=== PATIENT | male | born 1990 | race Caucasian/White ===

== ENCOUNTER 2019-09-09 14:53 | Inpatient (IN) | payer MEDICAID, OTHER ==
[~2019-09-09] VITALS: Ht 175.3 cm; Wt 87.4 kg
[2019-09-09 15:54] LABS: INFLUENZA A AMPLIFICATION NEGATIVE (NEGATIVE); INFLUENZA B AMPLIFICATION NEGATIVE (NEGATIVE)
[2019-09-09] MEDS ORDERED: NS 1,000 ML IV ONE (16:45)
[2019-09-09 17:26] LABS: BASO # 0.1 10^3/uL (0.0-0.2); BASO % 0.6 % (0.0-1.0); EOS % 0.1 % (0.0-3.0); HEMATOCRIT 43.8 % (42.0-52.0); HEMOGLOBIN 15.3 g/dl (13.5-17.5); LYMPH # 1.1 10^3/uL (1.5-5.0); LYMPH % 7.5 % (24.0-44.0); MEAN CORPUSCULAR HEMOGLOBIN 30.5 pg (27.0-33.0); MEAN CORPUSCULAR HGB CONC 34.9 g/dl (32.0-36.5); MEAN CORPUSCULAR VOLUME 87.4 fl (80.0-96.0); MONO # 1.4 10^3/uL (0.0-0.8); MONO % 9.4 % (0.0-5.0); NEUTROPHILS # 12.3 10^3/uL (1.5-8.5); NEUTROPHILS % 82.1 % (36.0-66.0); PLATELET COUNT, AUTOMATED 233 10^3/uL (150-450); RED BLOOD COUNT 5.01 10^6/uL (4.30-6.10)
[2019-09-09 17:44] LABS: ALBUMIN 4.3 GM/DL (3.2-5.2); ALT/SGPT 25 U/L (12-78); BILIRUBIN,DIRECT 0.3 MG/DL (0.0-0.2); BILIRUBIN,TOTAL 0.8 MG/DL (0.2-1.0); BLOOD UREA NITROGEN 10 MG/DL (7-18); CALCIUM LEVEL 9.2 MG/DL (8.5-10.1); CARBON DIOXIDE LEVEL 27 MEQ/L (21-32); CHLORIDE LEVEL 104 MEQ/L (98-107); CREATININE FOR GFR 1.06 MG/DL (0.70-1.30); GLOMERULAR FILTRATION RATE > 60.0 (>60); GLUCOSE, FASTING 89 MG/DL (70-100); LIPASE 60 U/L (73-393); POTASSIUM SERUM 3.5 MEQ/L (3.5-5.1); SODIUM LEVEL 138 MEQ/L (136-145); TOTAL PROTEIN 7.7 GM/DL (6.4-8.2)
--- NOTE | 2019-09-09 18:05 | REP ---
THORACIC SPINE: AP and lateral views of the thoracic spine were performed. No compression fracture is seen. There is normal thoracic kyphosis in alignment. Disc spaces are well preserved. Posterior elements are intact. There is very mild curvature of the upper thoracic spine toward the right and lower thoracic spine toward the left. IMPRESSION: No acute fracture or dislocation. Mild curvature. Electronically Signed by Jordin Del Rosario MD 09/09/2019 06:13 P
--- NOTE | 2019-09-09 18:06 | REP ---
CHEST: Two views. There is no evidence of acute infiltrate. No pleural effusion is seen. The heart is normal in size. The mediastinal silhouette is unremarkable. The visualized osseous structures are intact. IMPRESSION: No acute pulmonary disease. Electronically Signed by Jordin Del Rosario MD 09/09/2019 06:13 P
--- NOTE | 2019-09-09 18:20 | ECGEPIP ---
[facility], [place] - ED Test Date: 2019-09-09 Pat Name: LILIANE LOYD Department: Room: - Gender: Male [employer] Officer: MICHAELA : 1990 Requested By: STACY Marin PA-C Order Number: [id number] Reading MD: Ge Avendano Measurements Intervals [place] Rate: 103 P: 21 OH: 154 QRS: -16 QRSD: 100 T: 21 QT: 321 QTc: 421 Interpretive Statements SINUS TACHYCARDIA NONSPECIFIC T WAVE ABNORMALITIES NO PRIORS FOR COMPARISON Electronically Signed on 09-09-2019 18:20:18 EST by Ge Avendano
[2019-09-09] MEDS ORDERED: cefTRIAXone SOD 2 GM in D5W MINI-BAG PLUS 50 ML IV ONE (18:45)
[2019-09-09] MEDS ORDERED: NS 1,690 ML in IV 1 EA IV ONE (18:45)
[2019-09-09] MEDS ORDERED: IBUPROFEN 800 MG TAB PO ONE (19:00)
[2019-09-09] MEDS ORDERED: ACETAMINOPHEN 325 MG TAB PO ONE (19:00)
--- NOTE | 2019-09-09 19:19 | HPEPDOC ---
[facility] Medical History & Physical Date of Admission Sep 09, 2019 Date of Service: Sep 09, 2019 Attending Physician: RENETTA CASTELLANOS MD History and Physical TIME OF SERVICE: 8:30 PM CHIEF COMPLAINT: Cough HISTORY OF PRESENT ILLNESS: This is a 29-year-old male who presents with complaints of cough, runny nose and congestion for 2 weeks. Last night he developed a fever, chills, and myalgias therefore he decided to come in to the ER for evaluation. 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 He denies having any abnormal discharge. REVIEW OF SYSTEMS: 12 point review of systems negative except as listed in HPI PAST MEDICAL/ SURGICAL HISTORY: History of nephrolithiasis. Status post appendectomy. SOCIAL HISTORY: He chews tobacco. FAMILY HISTORY: His aunt has kidney problems and is on dialysis. His grandpa has diabetes. ALLERGIES: Please see below. HOME MEDICATIONS: Please see below. PHYSICAL EXAMINATION: VITAL SIGNS: Please see below. GENERAL APPEARANCE: Well-nourished, well-developed, appears acutely ill HEENT: Normocephalic, atraumatic, mucous membranes moist and pink, sclerae anicteric CARDIOVASCULAR: Tachycardic, no murmurs, rubs or gallops, radial pulses are intact, external these are warm and well-perfused LUNGS: Clear to auscultation bilaterally on room air ABDOMEN:. Positive bowel sounds. Abdomen is soft; he grimaces with palpation of the lower abdomen MUSCULOSKELETAL: He does not have CVA tenderness, there is some tenderness with palpation of the mid upper back INTEGUMENT: He appears slightly pale and is diaphoretic NEUROLOGICAL: Cranial nerves II-12 are grossly intact. Speech is not dysarthric PSYCHIATRIC: Alert and oriented to person, place and time, able to understand and follow all commands LABORATORY DATA: See below. IMAGING: Thoracic spine x-ray "IMPRESSION: No acute fracture or dislocation. Mild curvature." Chest x-ray "IMPRESSION: No acute pulmonary disease." MICROBIOLOGY: Please see below. ASSESSMENT: Mr. Maguire is a 23 year old with a past medical history of uncontrolled hypertension and tobacco abuse who will be admitted for management of sepsis secondary to UTI. PLAN: 1. Sepsis Despite complaining of URI symptoms, based on the complaint of abdominal pain and UA, he has been diagnosed with a UTI ; we can't rule out a viral URI because the panel is still pending. SIRS criteria include Temp >101 / HR >90 / WBC >12 His lactic acid is 1 NEW2S Score = 3 = low risk Sepsis protocol was initiated in the ER; he received IV fluids and ceftriaxone Plan: admit medical floor/ telemetry / continue ceftriaxone / will not give additional IV fluids because his blood pressures on the high side /f/u blood cx, UCx and respiratory panel / Acetaminophen PRN for fever / target MAP 65 to 70 / f/u Is and Os with target UOP of atleast 0.5 ml/kg/H /follow-up, Accu-Cheks with a target serum glucose 140-180 while acutely ill 2. Uncontrolled hypertension. He is aware that he has hypertension but has not been started on medications. He is a bit young to have high blood pressure may be due to his tobacco use Plan: start low-dose amlodipine and have a low threshold to discontinue this medication if his blood pressure drops because of infection/ he can follow-up with his PCP for workup to rule out secondary causes of hypertension / will order a low-salt diet and avoid being additional doses of NSAIDs 3. Tobacco abuse Plan Tobacco cessation education DVT prophylaxis with SCDs Disposition likely home after more than 2 midnight's stay Vital Signs Vital Signs Date Time Temp Pulse Resp B/P (MAP) Pulse Ox O2 Delivery O2 Flow Rate FiO2 09/09/19 18:30 102.3 105 18 180/98 (125) 100 Room Air Laboratory Data Labs 24H Laboratory Tests 2 09/09/19 15:15: Influenza Type A (RT-PCR) NEGATIVE, Influenza Type B (RT-PCR) NEGATIVE 09/09/19 17:05: 09/09/19 17:06: Immature Granulocyte % (Auto) 0.3, Neutrophils (%) (Auto) 82.1H, Lymphocytes (%) (Auto) 7.5L, Monocytes (%) (Auto) 9.4H, Eosinophils (%) (Auto) 0.1, Basophils (%) (Auto) 0.6, Neutrophils # (Auto) 12.3H, Lymphocytes # (Auto) 1.1L, Monocytes # (Auto) 1.4H, Eosinophils # (Auto) 0.0, Basophils # (Auto) 0.1, Nucleated Red Blood Cells % (auto) 0.0, D-Dimer, Quantitative 402.31, Urine Color YELLOW, Urine Appearance CLEAR, Urine pH 6.0, Urine Specific Pegram 1.018, Urine Protein 1+H, Urine Glucose (UA) NEGATIVE, Urine Ketones 1+H, Urine Blood 2+H, Urine Nitrite NEGATIVE, Urine Bilirubin NEGATIVE, Urine Urobilinogen 2.0H, Urine Leukocyte Esterase 2+H, Urine WBC (Auto) 78H, Urine RBC (Auto) 16H, Urine Hyaline Casts (Auto) 0, Urine Bacteria (Auto) 1+H, Urine Squamous Epithelial Cells 0, Urine Mucus (Auto) SMALL, Urine Sperm (Auto) , Anion Gap 7L, Glomerular Filtration Rate > 60.0, Calcium Level 9.2, Total Bilirubin 0.8, Direct Bilirubin 0.3H, Aspartate Amino Transf (AST/SGOT) 15, Alanine Aminotransferase (ALT/SGPT) 25, Alkaline Phosphatase 99, Total Protein 7.7, Albumin 4.3, Albumin/Globulin Ratio 1.26, Lipase 60L CBC/BMP Laboratory Tests 09/09/19 17:06 Microbiology Microbiology 09/09/19 Urine Culture, Received Pending Home Medications Scheduled Amoxicillin/Potassium Clav (Augmentin 875-125 Tablet) 1 Each Tablet, 875 MG PO BID Azithromycin (Azithromycin) 500 Mg Tablet, 1 TAB PO DAILY Lisinopril (Lisinopril) 10 Mg Tablet, 10 MG PO DAILY Oseltamivir Phosphate (Oseltamivir Phosphate) 75 Mg Capsule, 75 MG PO BID Allergies Coded Allergies: No Known Allergies (Unverified , 09/09/19) A-FIB/CHADSVASC A-FIB History Current/History of A-Fib/PAF?: No Current PO Anticoag Therapy: No RENETTA CASTELLANOS MD Sep 09, 2019 19:19
[2019-09-09] MEDS ORDERED: NS 1,000 ML IV SCH (19:45)
[2019-09-09 20:18] LABS: CHLAMYDIA DNA AMPLIFICATION NEGATIVE (NEGATIVE); GC DNA AMPLIFICATION NEGATIVE (NEGATIVE)
[2019-09-09 20:51] VITALS: BP 160/84
[2019-09-09] MEDS ORDERED: lisinopriL 10 MG TAB PO SCH (21:15)
[2019-09-09 22:00] VITALS: BP 157/84
[2019-09-09 22:06] VITALS: BP_SYST 135; BP_SYST 136; BP_DIAS 80
[2019-09-09 22:58] LABS: VENOUS BASE EXCESS -2.8 (-2.0-2.0); VENOUS HCO3 21.3 MEQ/L (23.0-27.0); VENOUS O2 SATURATION 99.1 % (60.0-80.0); VENOUS PARTIAL PRESSURE CO2 35.2 mmHg (38.0-50.0); VENOUS PARTIAL PRESSURE O2 171.1 mmHg (30.0-50.0); VENOUS STANDARD HCO3 22.2 MEQ/L; VENOUS TOTAL CO2 22.4 MEQ/L (24.0-28.0)
[2019-09-10 02:00] VITALS: BP 131/90
[2019-09-10] MEDS: ACETAMINOPHEN TAB 650MG DOSE (2X325MG) PO PRN ×2 (05:13→18:29)
[2019-09-10 05:45] VITALS: BP 142/95
[2019-09-10] MEDS ORDERED: IBUPROFEN 400 MG TAB PO SCH (06:00)
[2019-09-10 06:24] LABS: HEMATOCRIT 40.7 % (42.0-52.0); HEMOGLOBIN 13.7 g/dl (13.5-17.5); MEAN CORPUSCULAR HGB CONC 33.7 g/dl (32.0-36.5); MEAN CORPUSCULAR VOLUME 89.1 fl (80.0-96.0); PLATELET COUNT, AUTOMATED 192 10^3/uL (150-450); RED BLOOD COUNT 4.57 10^6/uL (4.30-6.10); WHITE BLOOD COUNT 11.8 10^3/uL (4.0-10.0)
[2019-09-10 06:42] LABS: BLOOD UREA NITROGEN 7 MG/DL (7-18); CALCIUM LEVEL 8.3 MG/DL (8.5-10.1); CARBON DIOXIDE LEVEL 26 MEQ/L (21-32); CHLORIDE LEVEL 109 MEQ/L (98-107); CREATININE FOR GFR 0.79 MG/DL (0.70-1.30); GLOMERULAR FILTRATION RATE > 60.0 (>60); GLUCOSE, FASTING 95 MG/DL (70-100); POTASSIUM SERUM 3.4 MEQ/L (3.5-5.1); SODIUM LEVEL 139 MEQ/L (136-145)
[2019-09-10] MEDS ORDERED: IBUPROFEN 600 MG TAB PO ONE ×2 (07:00→07:30)
[2019-09-10] MEDS ORDERED: POTASSIUM CHLORIDE 10 MEQ SR TABLET PO ONE (07:30)
[2019-09-10] MEDS: cefTRIAXone SOD 2 GM in D5W MINI-BAG PLUS 50 ML IV SCH ×2 (08:27→20:35)
[2019-09-10] MEDS: LIDOCAINE 5% (LIDODERM) PATCH TD SCH (08:28)
[2019-09-10] MEDS ORDERED: INFLUENZA QUADRIVALENT PF VACCINE 0.5ML SYRINGE (90686) IM ONE (09:00)
[2019-09-10 10:00] VITALS: BP 135/75
--- NOTE | 2019-09-10 14:10 | IPNPDOC ---
Text Note Date of Service The patient was seen on 09/10/19. NOTE Subjective: Patient continues to complain of the dry cough with greenish sputum. He is febrile in the morning with temperature 103, he has chills. Patient denies any dysuria Objective: VITAL SIGNS: Please see below. GENERAL APPEARANCE: Well-nourished, well-developed, not in apparent distress HEENT: Normocephalic, atraumatic. Mucous members moist and pink CARDIOVASCULAR: Regular rate and rhythm. No murmurs, rubs or gallops. Radial pulses are intact. There is no lower extremity edema LUNGS: scattered rhonchi bilaterally ABDOMEN: Abdomen is soft and nontender. MUSCULOSKELETAL: Range of motion is intact in all 4 extremities NEUROLOGICAL: Cranial nerves II-12 are grossly intact. Speech is not dysarthric Assessment and plan: Mr. Maguire is a 23 year old with a past medical history of uncontrolled hypertension and tobacco abuse who will be admitted for management of sepsis secondary to upper respiratory infection. 1. Sepsis Patient was febrile and tachycardic on the admission Most likely secondary to upper respiratory infection. Ceftriaxone IV, azithromycin IV I will start Tamiflu because patient has hypertension which put him in the high risk group I will repeat blood culture due to spiking fever in the morning I will repeat UA due to patient's complains of abdominal pain on admission and increased number of leukocytes in the urine. Today patient denied dysuria Acute bronchitis Most likely secondary to viral infection superimposed with bacterial infection Patient has cough with greenish sputum production Has history of smoking Continue antibiotics Incentive spirometry Uncontrolled hypertension. Kidney function improved, I started lisinopril Tobacco abuse Plan Tobacco cessation education [facility] DIAL, I+O VSBurt, I+O Laboratory Tests 09/09/19 17:06 09/10/19 05:36 Vital Signs Date Time Temp Pulse Resp B/P (MAP) Pulse Ox O2 Delivery O2 Flow Rate FiO2 09/10/19 10:19 99.8 09/10/19 10:00 85 16 135/75 (95) 100 Room Air I&O- Last 24 Hours up to 6 AM 09/10/19 06:00 Intake Total 4290 ml Output Total 1500 ml Balance 2790 ml PAIGE VEE DO Sep 10, 2019 14:10
[2019-09-10] MEDS ORDERED: lisinopriL 10 MG TAB PO ONE (14:30)
[2019-09-10] MEDS: AZITHROMYCIN 250 MG TAB PO SCH (14:31)
[2019-09-10] MEDS: NS 1,000 ML IV SCH ×2 (14:31→22:48)
[2019-09-10] MEDS: OSELTAMIVIR PHOSPHATE 75 MG CAP (TAMIFLU) PO SCH ×2 (14:32→20:35)
[2019-09-10 18:00] VITALS: BP 169/109
[2019-09-10] MEDS ORDERED: ONDANSETRON 4MG/2ML VIAL (J2405) IV PRN (18:15)
[2019-09-10] MEDS: MORPHINE 2 MG/ML 1ML VIAL (J2270) IV PRN (18:30)
[2019-09-10 18:51] LABS: BASO # 0.1 10^3/uL (0.0-0.2); BASO % 0.5 % (0.0-1.0); EOS # 0.1 10^3/uL (0.0-0.5); EOS % 0.6 % (0.0-3.0); HEMATOCRIT 42.2 % (42.0-52.0); HEMOGLOBIN 14.1 g/dl (13.5-17.5); LYMPH # 0.9 10^3/uL (1.5-5.0); LYMPH % 9.8 % (24.0-44.0); MEAN CORPUSCULAR HGB CONC 33.4 g/dl (32.0-36.5); MEAN CORPUSCULAR VOLUME 89.8 fl (80.0-96.0); MONO % 10.2 % (0.0-5.0); NEUTROPHILS # 7.5 10^3/uL (1.5-8.5); NEUTROPHILS % 78.6 % (36.0-66.0); PLATELET COUNT, AUTOMATED 200 10^3/uL (150-450); WHITE BLOOD COUNT 9.6 10^3/uL (4.0-10.0)
--- NOTE | 2019-09-10 19:39 | REPVR ---
PROCEDURE INFORMATION: Exam: CT Abdomen And Pelvis Without Contrast Exam date and time: 09/10/2019 6:55 PM Age: 29 years old Clinical history: Abdominal pain; Flank; Other: Not specified; Additional info: Flank pain/rule out kidney stone TECHNIQUE: Imaging protocol: Computed tomography of the abdomen and pelvis without contrast. Radiation optimization: All CT scans at this facility use at least one of these dose optimization techniques: automated exposure control; mA and/or kV adjustment per patient size (includes targeted exams where dose is matched to clinical indication); or iterative reconstruction. COMPARISON: No relevant prior studies available. FINDINGS: Lungs: Right lower lobe mixed airspace and interstitial infiltrate. Liver: Normal. No mass. Gallbladder and bile ducts: Normal. No calcified stones. No ductal dilation. Pancreas: Normal. No ductal dilation. Spleen: There is mild splenomegaly with a maximum span of 14.5 centimeters. No focal abnormalities demonstrated. Adrenals: Normal. No mass. Kidneys and ureters: Normal. No hydronephrosis. Stomach and bowel: Unremarkable. No obstruction. No mucosal thickening. Appendix: There has been an appendectomy. Intraperitoneal space: Unremarkable. No free air. No significant fluid collection. Vasculature: Unremarkable. No abdominal aortic aneurysm. Lymph nodes: Unremarkable. No enlarged lymph nodes. Bladder: Unremarkable as visualized. Reproductive: The prostate gland demonstrates mild hyperplasia. Bones/joints: Unremarkable. No acute fracture. Soft tissues: Unremarkable. IMPRESSION: 1. Right lower lobe mixed airspace and interstitial infiltrate. 2. There has been an appendectomy. 3. Mild prostatic hyperplasia. 4. There is mild splenomegaly with a maximum span of 14.5 centimeters. No focal abnormalities demonstrated. 5. No urinary tract calculi demonstrated. Electronically signed by: Enoch Rascon On 09/10/2019 19:38:44 PM
[2019-09-10 20:04] LABS: HIV 1&2 SCREEN CENTAUR NEGATIVE (NEGATIVE)
[2019-09-10] MEDS: OMEPRAZOLE 20 MG CAP PO SCH (20:35)
[2019-09-10 22:00] VITALS: BP 141/81
[2019-09-10] MEDS ORDERED: ACETAMINOPH W/CODEINE #3 TAB UD PO ONE (22:45)
[2019-09-10] MEDS: methylPREDNISolone INJ 125 MG/2 ML VIAL (J2930) IV SCH (23:22)
[2019-09-10] MEDS: **NOTE PATIENT COMMENT** MISC XX SCH (23:33)
[2019-09-11 02:00] VITALS: BP 138/76
[2019-09-11 06:00] VITALS: BP 134/76
[2019-09-11] MEDS: methylPREDNISolone INJ 125 MG/2 ML VIAL (J2930) IV SCH (06:38)
[2019-09-11] MEDS: NS 1,000 ML IV SCH ×2 (06:38→15:47)
[2019-09-11] MEDS: MORPHINE 2 MG/ML 1ML VIAL (J2270) IV PRN (06:39)
[2019-09-11 06:59] LABS: BASO % 0.2 % (0.0-1.0); HEMOGLOBIN 14.3 g/dl (13.5-17.5); LYMPH # 0.5 10^3/uL (1.5-5.0); LYMPH % 5.7 % (24.0-44.0); MEAN CORPUSCULAR HEMOGLOBIN 29.4 pg (27.0-33.0); MEAN CORPUSCULAR HGB CONC 32.5 g/dl (32.0-36.5); MEAN CORPUSCULAR VOLUME 90.5 fl (80.0-96.0); MONO # 0.2 10^3/uL (0.0-0.8); MONO % 2.3 % (0.0-5.0); NEUTROPHILS # 7.4 10^3/uL (1.5-8.5); NEUTROPHILS % 91.4 % (36.0-66.0); PLATELET COUNT, AUTOMATED 223 10^3/uL (150-450); RED BLOOD COUNT 4.86 10^6/uL (4.30-6.10); WHITE BLOOD COUNT 8.1 10^3/uL (4.0-10.0)
[2019-09-11 07:13] LABS: BLOOD UREA NITROGEN 7 MG/DL (7-18); CALCIUM LEVEL 8.4 MG/DL (8.5-10.1); CARBON DIOXIDE LEVEL 26 MEQ/L (21-32); CHLORIDE LEVEL 109 MEQ/L (98-107); GLOMERULAR FILTRATION RATE > 60.0 (>60); GLUCOSE, FASTING 130 MG/DL (70-100); MAGNESIUM LEVEL 2.2 MG/DL (1.8-2.4); POTASSIUM SERUM 3.9 MEQ/L (3.5-5.1); SODIUM LEVEL 142 MEQ/L (136-145)
[2019-09-11] MEDS: LIDOCAINE 5% (LIDODERM) PATCH TD SCH (09:36)
[2019-09-11] MEDS: OMEPRAZOLE 20 MG CAP PO SCH ×2 (09:36→20:17)
[2019-09-11] MEDS: AZITHROMYCIN 250 MG TAB PO SCH (09:36)
[2019-09-11] MEDS: OSELTAMIVIR PHOSPHATE 75 MG CAP (TAMIFLU) PO SCH ×2 (09:36→20:17)
[2019-09-11] MEDS: cefTRIAXone SOD 2 GM in D5W MINI-BAG PLUS 50 ML IV SCH ×2 (09:37→20:17)
[2019-09-11] MEDS: lisinopriL 10 MG TAB PO SCH (09:37)
[2019-09-11 10:00] VITALS: BP 140/79
[2019-09-11 11:23] LABS: TOTAL PROTEIN,RANDOM URINE 19.6 MG/DL (0.0-12.0)
[2019-09-11 12:30] LABS: CHLAMYDIA DNA AMPLIFICATION NEGATIVE (NEGATIVE); GC DNA AMPLIFICATION NEGATIVE (NEGATIVE)
[2019-09-11 14:00] VITALS: BP 132/77
--- NOTE | 2019-09-11 14:56 | CR ---
DATE OF CONSULTATION: 09/11/2019 CONSULTATION FOR: Dread Vasquez DO REASON FOR CONSULTATION: Proteinuria, hematuria, and possible nephritis. HISTORY OF PRESENT ILLNESS: Mr. Maguire is a 29-year-old gentleman who was admitted to [facility] on September 09 due to fever, chills, congestion, and runny nose. A chest x-ray was unremarkable. He had an abdominal CAT scan done which showed right lower lobe infiltrate. The patient also had abnormal urinalysis with proteinuria and hematuria, and a nephrology consultation was requested today. The patient is seen on his bedside. PAST MEDICAL AND SURGICAL HISTORY: Significant for history of nephrolithiasis, status post prior appendectomy. MEDICATIONS: The patient had no prior medications. He is currently being treated in the hospital with lisinopril 10 mg daily, omeprazole 20 mg twice a day, Zofran 2 mg every 4 hours as needed nausea, lidocaine patch for back pain, azithromycin 500 mg daily, Tamiflu 75 mg twice a day, and ceftriaxone 2 grams every 12 hours. ALLERGIES: The patient has no known drug allergies. PERSONAL AND SOCIAL HISTORY: The patient is active and works in the [employer] business. He chews tobacco but denies any recreational drug use or alcohol use. FAMILY HISTORY: His aunt is on dialysis due to end-stage renal disease. There is diabetes in his grandfather. REVIEW OF SYSTEMS: The patient had fever and chills at the time of admission. At present, he is afebrile and denies any chills. He had back pain yesterday for which he is wearing lidocaine patch and was also given morphine and steroids. Ears, nose, and throat are unremarkable. Cardiovascular system is significant for hypertension. He is being treated with lisinopril. Denies any dyspnea or chest pain. Respiratory system: Significant for cough. Denies any pleuritic type chest pain or hemoptysis. Genitourinary () system is significant for purulent discharge from his urethra. There is history of kidney stones, but he denies passing any stool recently. Musculoskeletal system is negative for any leg edema. He had severe lower back pain and is wearing lidocaine patches. Endocrine system, negative for diabetes or thyroid problems. Hematological system, negative for easy bruising or excessive bleeding. Psychosocial system, negative for depression, anxiety. Skin is negative for rash or ulcers. PHYSICAL EXAM: Healthy-looking young male lying in the bed without any acute distress. Temperature 98.7 degrees Fahrenheit, heart rate 84 per minute, and respiratory rate 18 per minute. Blood pressure 140/79 mmHg, and oxygen saturation 97% on room air. Head is atraumatic. Neck: Supple and without jugular venous distention (JVD) or thyroid enlargement. Heart: Sounds are regular. Lungs: Clear to auscultation. Abdomen: Soft and nontender. Bowel sounds are normal. Extremities: Without any cyanosis or clubbing. Neurologically, he is awake, alert and oriented times three. Today's labs show WBC count 8.1, hemoglobin 14.3, and hematocrit 44.0. Platelets 223. He had a blood gas done on day of admission which showed pH of 7.40, pCO2 35 and pO2 171. His chemistry showed a BUN of 10 and creatinine 1.06 on September 09. Yesterday, his creatinine was 0.79, sodium 139, and potassium 3.4. CO2 was 26. Today's sodium is 142, potassium 3.9, CO2 26, BUN 7, and creatinine 0.92. Urinalysis showed 1+ protein on September 09. On September 10, he had another urinalysis which showed no protein on dipstick. He has a spot urine protein checked today which is only 19.6 with a random urine creatinine of 49.0. He had 78 WBCs and 16 RBCs in his urine on September 09. On September 10 he had 176 WBCs and 30 RBCs, but there was no protein and blood was 2+. PROBLEMS: 1. Proteinuria. The patient did have transient proteinuria on September 09. At that time, his blood pressure was high and he was febrile which is probable cause for mild proteinuria which was transient and has resolved. He does give history of urethral discharge, and most likely his hematuria and proteinuria is related to lower urinary tract infection. His kidney function is stable, and I do not feel that there is a renal source for proteinuria or hematuria. 2. Nephritis. I feel that nephritis is unlikely as the patient has normal kidney function and proteinuria has resolved. He had more pyuria, which is suggestive of urinary tract infection and not of nephritis. I would recommend to continue treating him with antibiotics pending culture results. The patient does have history of kidney stones, but on the CAT scan of abdomen and pelvis done on September 10, no stones were identified. Thank you for involving me in the care of Mr. Maguire. I will follow him along with you.
--- NOTE | 2019-09-11 15:31 | IPNPDOC ---
Text Note Date of Service The patient was seen on 09/11/19. NOTE Subjective: Patient patient noticed greenish discharge from his penis. Fever resolved. He doesn't have right flank pain. Objective: VITAL SIGNS: Please see below. GENERAL APPEARANCE: Well-nourished, well-developed, not in apparent distress HEENT: Normocephalic, atraumatic. Mucous members moist and pink CARDIOVASCULAR: Regular rate and rhythm. No murmurs, rubs or gallops. Radial pulses are intact. There is no lower extremity edema LUNGS: scattered rhonchi bilaterally ABDOMEN: Abdomen is soft and nontender. MUSCULOSKELETAL: Range of motion is intact in all 4 extremities NEUROLOGICAL: Cranial nerves II-12 are grossly intact. Speech is not dysarthric Assessment and plan: Mr. Maguire is a 29 year old with a past medical history of uncontrolled hypertension and tobacco abuse who will be admitted for management of sepsis secondary to upper respiratory infection. During hospital stay patient was found to have urethritis secondary to trichomonas infection 1. Sepsis Patient was febrile and tachycardic on the admission Most likely secondary to upper respiratory infection. Ceftriaxone IV, azithromycin IV I started Tamiflu because patient has hypertension which put him in the high risk group blood culture negative. Fevers resolved Acute bronchitis Most likely secondary to viral infection superimposed with bacterial infection Patient has cough with greenish sputum production Has history of smoking Continue antibiotics Incentive spirometry Uncontrolled hypertension. Kidney function improved, I started lisinopril Blood pressures under control Urethritis Patient has pyuria. Today he was tested positive for Trichomonas infection. I talked to the patient and his and explained that Trichomonas is sexually transmitted diseases and both partners should be tested and treated. Patient should avoid alcohol for next 72 hours Metronidazole 2 g once Patient was tested negative for gonococcal and chlamydial infection HIV test negative Tobacco abuse Tobacco cessation education VS,Fishbone, I+O VS, Fishbone, I+O Laboratory Tests 09/10/19 18:33 09/11/19 06:16 Vital Signs Date Time Temp Pulse Resp B/P (MAP) Pulse Ox O2 Delivery O2 Flow Rate FiO2 09/11/19 14:00 98.2 87 19 132/77 (95) 97 Room Air I&O- Last 24 Hours up to 6 AM 09/11/19 06:00 Intake Total 3454 ml Output Total 2550 ml Balance 904 ml PAIGE VEE DO Sep 11, 2019 15:31
[2019-09-11] MEDS ORDERED: metroNIDAZOLE (FLAGYL) 500 MG TAB PO ONE (16:00)
[2019-09-11] MEDS: ACETAMINOPHEN TAB 650MG DOSE (2X325MG) PO PRN (18:05)
[2019-09-11 22:00] VITALS: BP 155/88
[2019-09-11] MEDS: **NOTE PATIENT COMMENT** MISC XX SCH (23:41)
[2019-09-12] MEDS: NS 1,000 ML IV SCH ×2 (01:26→09:48)
[2019-09-12 02:00] VITALS: BP 152/77
[2019-09-12 06:00] VITALS: BP 137/71
[2019-09-12 07:11] LABS: BASO % 0.2 % (0.0-1.0); EOS % 0.1 % (0.0-3.0); HEMATOCRIT 38.8 % (42.0-52.0); HEMOGLOBIN 13.3 g/dl (13.5-17.5); LYMPH # 1.8 10^3/uL (1.5-5.0); LYMPH % 14.7 % (24.0-44.0); MEAN CORPUSCULAR HEMOGLOBIN 30.4 pg (27.0-33.0); MEAN CORPUSCULAR HGB CONC 34.3 g/dl (32.0-36.5); MEAN CORPUSCULAR VOLUME 88.8 fl (80.0-96.0); MONO # 1.3 10^3/uL (0.0-0.8); MONO % 10.8 % (0.0-5.0); NEUTROPHILS % 73.6 % (36.0-66.0); PLATELET COUNT, AUTOMATED 235 10^3/uL (150-450); RED BLOOD COUNT 4.37 10^6/uL (4.30-6.10); WHITE BLOOD COUNT 12.2 10^3/uL (4.0-10.0)
[2019-09-12 07:29] LABS: BLOOD UREA NITROGEN 10 MG/DL (7-18); CALCIUM LEVEL 8.3 MG/DL (8.5-10.1); CARBON DIOXIDE LEVEL 26 MEQ/L (21-32); CHLORIDE LEVEL 113 MEQ/L (98-107); CREATININE FOR GFR 0.78 MG/DL (0.70-1.30); GLOMERULAR FILTRATION RATE > 60.0 (>60); GLUCOSE, FASTING 102 MG/DL (70-100); MAGNESIUM LEVEL 2.2 MG/DL (1.8-2.4); POTASSIUM SERUM 3.3 MEQ/L (3.5-5.1); SODIUM LEVEL 145 MEQ/L (136-145)
[2019-09-12] MEDS ORDERED: POTASSIUM CHLORIDE 10 MEQ SR TABLET PO ONE (07:45)
[2019-09-12] MEDS: AZITHROMYCIN 250 MG TAB PO SCH (09:39)
[2019-09-12] MEDS: cefTRIAXone SOD 2 GM in D5W MINI-BAG PLUS 50 ML IV SCH (09:39)
[2019-09-12] MEDS: OMEPRAZOLE 20 MG CAP PO SCH (09:39)
[2019-09-12] MEDS: OSELTAMIVIR PHOSPHATE 75 MG CAP (TAMIFLU) PO SCH (09:39)
[2019-09-12 09:48] VITALS: BP 140/88
[2019-09-12] MEDS: lisinopriL 10 MG TAB PO SCH (09:48)
[2019-09-12] MEDS: LIDOCAINE 5% (LIDODERM) PATCH TD SCH (09:49)
[2019-09-12] MEDS ORDERED: AZIT500T5 PO (10:14)
[2019-09-12] MEDS ORDERED: AUGM875T28 PO (10:14)
[2019-09-12] MEDS ORDERED: OSEL75CA2 PO (10:14)
[2019-09-12] MEDS ORDERED: LISI10TA4 PO (12:00)
--- NOTE | 2019-09-12 18:03 | DS.PDOC ---
Discharge Summary General Date of Admission Sep 09, 2019 at 19:18 Date of Discharge 09/12/19 Discharge Summary PROCEDURES PERFORMED DURING STAY: [None]. ADMITTING DIAGNOSES: Sepsis Acute bronchitis Uncontrolled hypertension. Urethritis Tobacco abuse DISCHARGE DIAGNOSES: Sepsis Acute bronchitis Uncontrolled hypertension. Urethritis Tobacco abuse COMPLICATIONS/CHIEF COMPLAINT: Sepsis; Uti. HISTORY OF PRESENT ILLNESS:This is a 29-year-old male who presents with complaints of cough, runny nose and congestion for 2 weeks. Last night he developed a fever, chills, and myalgias therefore he decided to come in to the ER for evaluation. 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 HOSPITAL COURSE: During hospital stay the following issue addressed Sepsis Patient was febrile and tachycardic on the admission Most likely secondary to upper respiratory infection. Ceftriaxone IV, azithromycin IV I started Tamiflu because patient has hypertension which put him in the high risk group blood culture negative. Fevers resolved Acute bronchitis Most likely secondary to viral infection superimposed with bacterial infection Patient has cough with greenish sputum production Has history of smoking Received antibiotics Incentive spirometry Uncontrolled hypertension. Kidney function improved, I started lisinopril Blood pressures under control Urethritis Patient has pyuria. Today he was tested positive for Trichomonas infection. I talked to the patient and his and explained that Trichomonas is sexually transmitted diseases and both partners should be tested and treated. Patient should avoid alcohol for next 72 hours Metronidazole 2 g once Patient was tested negative for gonococcal and chlamydial infection HIV test negative Tobacco abuse Tobacco cessation education Subjective: Patient patient noticed greenish discharge from his penis. Fever resolved. He doesn't have right flank pain. DISCHARGE MEDICATIONS: Please see below. ALLERGIES: Please see below. PHYSICAL EXAMINATION ON DISCHARGE: VITAL SIGNS: Please see below. Objective: VITAL SIGNS: Please see below. GENERAL APPEARANCE: Well-nourished, well-developed, not in apparent distress HEENT: Normocephalic, atraumatic. Mucous members moist and pink CARDIOVASCULAR: Regular rate and rhythm. No murmurs, rubs or gallops. Radial pulses are intact. There is no lower extremity edema LUNGS: scattered rhonchi bilaterally ABDOMEN: Abdomen is soft and nontender. MUSCULOSKELETAL: Range of motion is intact in all 4 extremities NEUROLOGICAL: Cranial nerves II-12 are grossly intact. Speech is not dysarthric LABORATORY DATA: Please see below. PROGNOSIS: Favorable ACTIVITY: [As tolerated]. DIET: Regular DISCHARGE PLAN: Continue taking prescribed medications DISPOSITION: 01 Home, Self-Care. DISCHARGE INSTRUCTIONS: Take a test for trichomoniasis in 2 weeks ITEMS TO FOLLOWUP ON ON OUTPATIENT: PCP DISCHARGE CONDITION: [Stable]. TIME SPENT ON DISCHARGE: Greater than 20 minutes. Vital Signs/I&Os Vital Signs Date Time Temp Pulse Resp B/P (MAP) Pulse Ox O2 Delivery O2 Flow Rate FiO2 09/12/19 09:48 140/88 09/12/19 06:00 97.8 102 17 96 Room Air I&O- Last 24 Hours up to 6 AM 09/12/19 06:00 Intake Total 2560 ml Output Total 1375 ml Balance 1185 ml Laboratory Data Labs 24H Laboratory Tests 2 09/12/19 06:52: Immature Granulocyte % (Auto) 0.6, Neutrophils (%) (Auto) 73.6H, Lymphocytes (%) (Auto) 14.7L, Monocytes (%) (Auto) 10.8H, Eosinophils (%) (Auto) 0.1, Basophils (%) (Auto) 0.2, Neutrophils # (Auto) 9.0H, Lymphocytes # (Auto) 1.8, Monocytes # (Auto) 1.3H, Eosinophils # (Auto) 0.0, Basophils # (Auto) 0.0, Nucleated Red Blood Cells % (auto) 0.0, Anion Gap 6L, Glomerular Filtration Rate > 60.0, Calcium Level 8.3L, Magnesium Level 2.2 CBC/BMP Laboratory Tests 09/12/19 06:52 Microbiology Microbiology 09/10/19 Urine Culture - Final, Complete 09/10/19 Blood Culture - Preliminary, Resulted No Growth after 48 hours. All Specime... 09/09/19 Blood Culture - Preliminary, Resulted No Growth after 48 hours. All Specime... 09/09/19 Blood Culture - Preliminary, Resulted No Growth after 48 hours. All Specime... 09/09/19 Urine Culture - Final, Complete Streptococcus Anginosus Grp 09/09/19 Respiratory Virus Panel (PCR) (JUAN C) - Final, Complete Discharge Medications Scheduled Amoxicillin/Potassium Clav (Augmentin 875-125 Tablet) 1 Each Tablet, 875 MG PO BID Azithromycin (Azithromycin) 500 Mg Tablet, 1 TAB PO DAILY Lisinopril (Lisinopril) 10 Mg Tablet, 10 MG PO DAILY Oseltamivir Phosphate (Oseltamivir Phosphate) 75 Mg Capsule, 75 MG PO BID Allergies Coded Allergies: No Known Allergies (Unverified , 09/09/19) PAIGE VEE DO Sep 12, 2019 18:03
== END 2019-09-12 12:09 | disposition home or self-care (01) | DRG 720 ==
LOC: M ED 14:53 → M ED INP 19:18 → M MSPAV 20:51
PROVIDERS: ADMIT Internal Medicine; ATTEND Internal Medicine
DX: A41.9 Sepsis, unspecified organism (principal); I10 Essential (primary) hypertension; F17.220 Nicotine dependence, chewing tobacco, uncomplicated; Z87.442 Personal history of urinary calculi; Z90.49 Acquired absence of other specified parts of digestive tract; J20.8 Acute bronchitis due to other specified organisms; A59.03 Trichomonal cystitis and urethritis